=== PATIENT | male | born 1975 | race Two or more races ===

== ENCOUNTER 2024-04-22 12:09 | Inpatient (IN) | payer OTHER ==
[2024-04-22 12:32] VITALS: BMI 27.6
[2024-04-22] MEDS ORDERED: POLYETHYLENE GLYCOL (HEALTHYLAX) 3350 17 GM PACKET PO PRN (14:04)
[2024-04-22] MEDS ORDERED: MAGNESIUM HYDROX 2400MG/30ML ORAL SUSPENSION 30 ML CUP PO PRN (14:04)
[2024-04-22] MEDS ORDERED: guaiFENesin 600 MG TABLET.ER (FP) PO PRN (14:04)
[2024-04-22] MEDS ORDERED: BENZONATATE 200 MG CAPSULE PO PRN (14:04)
[2024-04-22] MEDS ORDERED: ACETAMINOPHEN 325 MG TABLET (FP) PO PRN (14:04)
[2024-04-22] MEDS ORDERED: NALOXONE (NARCAN) HCL 4 MG/0.1 ML SPRAY NS PRN (14:04)
[2024-04-22] MEDS ORDERED: MAG HYDROX/AL HYDROX/SIMETH 30 ML UNIT-DOSE CUP PO PRN (14:04)
[2024-04-22] MEDS ORDERED: IBUPROFEN 400 MG TABLET (FP) PO PRN (14:04)
[2024-04-22] MEDS ORDERED: PATIENT'S OWN MEDICATION (NON-FORMULARY) (Buprenorphine/Naloxone 1 EACH Film) SL SCH (15:00)
[2024-04-22] MEDS: BUPRENORPHINE/NALOXONE 8 MG/2 MG FILM PACKET SL SCH (15:24)
[2024-04-22] MEDS: IBUPROFEN 600 MG TABLET (FP) PO PRN (15:24)
[2024-04-22] MEDS: NICOTINE 21 MG/24 HOURS TOPICAL PATCH TD SCH (15:24)
[2024-04-22] MEDS: NICOTINE POLACRILEX 4 MG LOZENGE BC PRN (15:25)
[2024-04-22] MEDS: TUBERCULIN PPD 5 TU/0.1ML SYRINGE (IN PATIENT USE ONLY) ID ONE (17:59)
[2024-04-22 18:46] LABS: PH,URINE 6.5 (5.0-8.0); URINE APPEARANCE CLEAR; URINE BILIRUBIN NEGATIVE (NEGATIVE); URINE COLOR YELLOW; URINE GLUCOSE (UA) NEGATIVE (NEGATIVE); URINE KETONE NEGATIVE (NEGATIVE); URINE LEUK ESTERASE NEGATIVE (NEGATIVE); URINE NITRITE NEGATIVE (NEGATIVE); URINE PROTEIN NEGATIVE (NEGATIVE)
[2024-04-22] MEDS: hydrOXYzine PAMOATE 25 MG CAPSULE (FP) PO PRN (21:53)
[2024-04-22] MEDS: THIAMINE 100 MG TABLET PO SCH (21:53)
[2024-04-22] MEDS: MELATONIN 5 MG TABLETS PO SCH (21:53)
[2024-04-23] MEDS: PRENATAL VITAMINS W/ FOLIC ACID TABLET (FP) PO SCH (09:32)
[2024-04-23 09:57] LABS: HEMATOCRIT 39.9 % (35.4-49); HEMOGLOBIN 13.4 GM/dL (11.7-16.9); MCH 32.6 pg (25.7-33.7); MCHC 33.6 g/dl (32.0-35.9); MEAN CELL VOLUME 97.2 fl (80-96); MEAN PLT VOLUME 9.4 fl (7.5-11.1); PLATELET COUNT 284 10^3/uL (134-434); RBC 4.11 M/mm3 (4.00-5.60); RDW 13.3 % (11.9-15.9); WHITE BLOOD COUNT 10.7 K/mm3 (4.0-10.0)
[2024-04-23] MEDS: ESCITALOPRAM OXALATE 20 MG TABLET PO SCH (10:02)
[2024-04-23 10:18] LABS: POTASSIUM 4.6 mmol/L (3.5-5.1)
[2024-04-23 10:22] LABS: CALCIUM 8.8 mg/dL (8.5-10.1)
[2024-04-23 10:23] LABS: ALBUMIN 3.2 g/dl (3.4-5.0); BLOOD UREA NITROGEN 10.5 mg/dL (7-18)
[2024-04-23 10:26] LABS: CREATININE 0.8 mg/dL (0.55-1.3)
[2024-04-23 10:27] LABS: BILIRUBIN,TOTAL 0.3 mg/dL (0.2-1)
[2024-04-23 10:28] LABS: TOT PROT 5.8 g/dl (6.4-8.2)
[2024-04-23] MEDS: GABAPENTIN 400 MG CAPSULE PO SCH (13:29)
[2024-04-23] MEDS: METHOCARBAMOL 500 MG TABLET PO SCH ×2 (17:29→22:46)
[2024-04-23] MEDS: BENZOCAINE/MENTHOL (CHLORASEPTIC ) LOZENGE MM PRN (17:30)
[2024-04-23] MEDS: QUEtiapine FUMARATE 100 MG TABLET (FP) PO SCH (22:46)
[2024-04-24 04:00] LABS: SYPHILIS W/ RPR CONF NON-REACTIVE (NONREACTIVE)
[2024-04-25] MEDS ORDERED: ESCITALOPRAM OXALATE 10 MG TABLET ONE (09:09)
[2024-04-25] MEDS: NICOTINE POLACRILEX 4 MG GUM BUC PRN (17:38)
[2024-04-26] MEDS: NICOTINE 21 MG/24 HOURS TOPICAL PATCH TD SCH (06:56)
[2024-04-26] MEDS ORDERED: ESCITALOPRAM OXALATE 10 MG TABLET ONE (09:40)
[2024-04-27] MEDS ORDERED: ESCITALOPRAM OXALATE 10 MG TABLET ONE (10:14)
[2024-04-28] MEDS: BACLOFEN 10 MG TABLET (FP) PO SCH (13:04)
[2024-04-28] MEDS: GABAPENTIN 300 MG CAPSULE PO SCH (14:51)
[2024-04-28] MEDS: BUPRENORPHINE/NALOXONE 8 MG/2 MG FILM PACKET SL SCH (21:42)
[2024-04-29] MEDS: SALICYLIC ACID (WART REMOVER) 9 ML LIQUID TP SCH (09:48)
[2024-05-01] MEDS: LOPERAMIDE HCL 2 MG CAPSULE PO PRN (11:15)
[2024-05-06] MEDS: QUEtiapine FUMARATE 50 MG TABLET PO SCH (21:20)
[2024-05-13] MEDS ORDERED: QUEtiapine FUMARATE 25 MG TABLET ONE (19:40)
[2024-05-18] MEDS ORDERED: NALOXONE (NYS OPIOID OVERDOSE PROGRAM) 4 MG/0.1 ML SPRAY NS PRN (08:45)
[2024-05-19 06:43] VITALS: RESP 16; TEMP 97.7
[2024-05-19] MEDS: NALOXONE (NYS OPIOID OVERDOSE PROGRAM) 4 MG/0.1 ML SPRAY NS PRN (08:47)
[2024-05-19 09:27] VITALS: BP 118/81; PULSE 84
== END 2024-05-19 09:32 | disposition home or self-care (01) | DRG 772 ==
LOC: YASAS 12:09 → Y3NR 13:30 → Y3E 04-24 10:08
PROVIDERS: ADMIT Surgery; ATTEND Psychiatry & Neurology Pain Medicine
PROC: HZ42ZZZ Group Counseling for Substance Abuse Treatment, Cognitive-Behavioral (ICD-10-PCS; principal; 2024-04-22)
DX: F10.20 Alcohol dependence, uncomplicated (principal); F11.20 Opioid dependence, uncomplicated; F14.20 Cocaine dependence, uncomplicated; F17.210 Nicotine dependence, cigarettes, uncomplicated; F33.1 Major depressive disorder, recurrent, moderate; F19.282 Other psychoactive substance dependence with psychoactive substance-induced sleep disorder; F19.24 Other psychoactive substance dependence with psychoactive substance-induced mood disorder; F41.9 Anxiety disorder, unspecified; G62.9 Polyneuropathy, unspecified
CPT/HCPCS: 36415; 80053; 80305; 80307; 81003; 85027; 86780; 86803; 87811; 93005; 93010; J0475

== ENCOUNTER 2024-06-07 21:00 | Inpatient (IN) | payer OTHER ==
[2024-06-07 14:57] VITALS: BMI 27.6
[2024-06-07] MEDS: cloNIDine HCL 0.1 MG TABLET PO ONE (16:21)
[2024-06-07] MEDS: BUPRENORPHINE HCL 150 MCG, BUPRENORPHINE HCL 75 MCG BC ONE (16:21)
[2024-06-07] MEDS: METHOCARBAMOL 500 MG TABLET PO PRN (16:25)
[~2024-06-07 21:00] MED LIST: ACETAMINOPHEN 325 MG TABLET (FP) PO PRN; BENZOCAINE/MENTHOL (CHLORASEPTIC ) LOZENGE MM PRN; BENZONATATE 200 MG CAPSULE PO PRN; BUPRENORPHINE HCL 150 MCG FILM BC ONE; BUPRENORPHINE HCL 150 MCG, BUPRENORPHINE HCL 75 MCG BC PRN; BUPRENORPHINE HCL 75 MCG FILM BC ONE; DICYCLOMINE HCL 10 MG CAPSULE PO PRN; IBUPROFEN 400 MG TABLET (FP) PO PRN; LOPERAMIDE HCL 2 MG CAPSULE ONE; LOPERAMIDE HCL 2 MG CAPSULE PO PRN; MAGNESIUM HYDROX 2400MG/30ML ORAL SUSPENSION 30 ML CUP PO PRN; METHOCARBAMOL 500 MG TABLET ONE; NALOXONE (NARCAN) HCL 4 MG/0.1 ML SPRAY NS PRN; ONDANSETRON *ODT* 4 MG TABLET SL PRN; POLYETHYLENE GLYCOL (HEALTHYLAX) 3350 17 GM PACKET PO PRN; cloNIDine HCL 0.1 MG TABLET ONE; diazePAM 5 MG TABLET PO PRN; guaiFENesin 600 MG TABLET.ER (FP) PO PRN; hydrOXYzine PAMOATE 25 MG CAPSULE (FP) PO PRN
[2024-06-07] MEDS: diazePAM 5 MG TABLET PO SCH (21:50)
[2024-06-07] MEDS ORDERED: MELATONIN 5 MG TABLETS ONE (22:25)
[2024-06-07] MEDS: MELATONIN 5 MG TABLETS PO SCH (22:37)
[2024-06-07] MEDS: THIAMINE 100 MG TABLET PO SCH (22:37)
[2024-06-07] MEDS ORDERED: diazePAM 5 MG TABLET ONE (23:28)
[2024-06-08] MEDS ORDERED: BUPRENORPHINE HCL 150 MCG, BUPRENORPHINE HCL 75 MCG BC PRN
[2024-06-08] MEDS ORDERED: diazePAM 5 MG TABLET ONE ×2 (05:18→10:26)
[2024-06-08] MEDS ORDERED: BUPRENORPHINE HCL 150 MCG FILM BC ONE (05:19)
[2024-06-08] MEDS ORDERED: NICOTINE 21 MG/24 HOURS TOPICAL PATCH ONE (05:19)
[2024-06-08] MEDS ORDERED: BUPRENORPHINE HCL 75 MCG FILM BC ONE (05:20)
[2024-06-08] MEDS: BUPRENORPHINE HCL 150 MCG, BUPRENORPHINE HCL 75 MCG BC SCH (05:27)
[2024-06-08] MEDS: NICOTINE 21 MG/24 HOURS TOPICAL PATCH TD SCH (05:28)
[2024-06-08] MEDS ORDERED: PRENATAL VITAMINS W/ FOLIC ACID TABLET (FP) PO ONE (10:27)
[2024-06-08] MEDS: PRENATAL VITAMINS W/ FOLIC ACID TABLET (FP) PO SCH (10:28)
[2024-06-08] MEDS ORDERED: IBUPROFEN 600 MG TABLET (FP) PO ONE (10:57)
[2024-06-08] MEDS: IBUPROFEN 600 MG TABLET (FP) PO PRN (10:57)
[2024-06-08 11:05] LABS: HEMATOCRIT 42.8 % (35.4-49); HEMOGLOBIN 14.1 GM/dL (11.7-16.9); MCH 31.9 pg (25.7-33.7); MEAN CELL VOLUME 96.7 fl (80-96); MEAN PLT VOLUME 9.1 fl (7.5-11.1); PLATELET COUNT 284 10^3/uL (134-434); RBC 4.43 M/mm3 (4.00-5.60); RDW 13.5 % (11.9-15.9); WHITE BLOOD COUNT 5.7 K/mm3 (4.0-10.0)
[2024-06-08 11:09] LABS: CHLORIDE 106 mmol/L (98-107); POTASSIUM 3.6 mmol/L (3.5-5.1); SODIUM 139 mmol/L (136-145)
[2024-06-08 11:22] LABS: CALCIUM 9.2 mg/dL (8.5-10.1)
[2024-06-08 11:23] LABS: ALBUMIN 3.7 g/dl (3.4-5.0); ANION GAP 7 mmol/L (4-13); BLOOD UREA NITROGEN 6.5 mg/dL (7-18); CO2 27 mmol/L (21-32); GLUCOSE,RANDOM 124 mg/dL (74-106)
[2024-06-08 11:26] LABS: CREATININE 0.7 mg/dL (0.55-1.3); SGOT/AST 25 U/L (15-37); SGPT/ALT 29 U/L (13-61)
[2024-06-08 11:27] LABS: BILIRUBIN,TOTAL 0.6 mg/dL (0.2-1)
[2024-06-08 11:28] LABS: TOT PROT 6.7 g/dl (6.4-8.2)
[2024-06-08 11:29] LABS: ALK PHOS 72 U/L (45-117)
[2024-06-08] MEDS: NICOTINE POLACRILEX 2 MG LOZENGE BC SCH (11:37)
[2024-06-08] MEDS: BISMUTH SUBSALICYLATE 262 MG/15 ML BTL PO PRN (13:58)
[2024-06-08] MEDS: cloNIDine HCL 0.1 MG TABLET PO PRN (17:18)
[2024-06-08] MEDS: NICOTINE POLACRILEX 2 MG LOZENGE BC PRN (17:37)
[2024-06-08] MEDS: QUEtiapine FUMARATE 100 MG TABLET (FP) PO SCH (22:39)
[2024-06-09] MEDS: diazePAM 5 MG TABLET PO SCH (06:12)
[2024-06-09] MEDS: BUPRENORPHINE HCL 450 MCG FILM BC SCH (06:13)
[2024-06-09] MEDS: ESCITALOPRAM OXALATE 20 MG TABLET PO SCH (10:01)
[2024-06-09] MEDS ORDERED: NICOTINE POLACRILEX 4 MG GUM BUC PRN (11:20)
[2024-06-09] MEDS: METHOCARBAMOL 500 MG TABLET PO PRN (11:42)
[2024-06-09] MEDS: NICOTINE POLACRILEX 2 MG LOZENGE BC PRN (12:21)
[2024-06-10] MEDS: BUPRENORPHINE/NALOXONE 4 MG/1 MG FILM PACKET SL SCH (05:55)
[2024-06-10] MEDS: diazePAM 5 MG TABLET PO SCH (05:55)
[2024-06-10] MEDS: GABAPENTIN 300 MG CAPSULE PO SCH (14:38)
[2024-06-11] MEDS: diazePAM 5 MG TABLET PO ONE (05:11)
[2024-06-11] MEDS: BUPRENORPHINE/NALOXONE 8 MG/2 MG FILM PACKET SL ONE (05:13)
[2024-06-11] MEDS: NICOTINE POLACRILEX 2 MG LOZENGE BC PRN (08:48)
[2024-06-11] MEDS: NALOXONE (NYS OPIOID OVERDOSE PROGRAM) 4 MG/0.1 ML SPRAY NS SCH (11:13)
[2024-06-12 09:29] VITALS: RESP 18
[2024-06-12] MEDS: NALOXONE (NYS OPIOID OVERDOSE PROGRAM) 4 MG/0.1 ML SPRAY NS SCH (11:30)
[2024-06-12] MEDS: MAG HYDROX/AL HYDROX/SIMETH 30 ML UNIT-DOSE CUP PO PRN (12:43)
[2024-06-12 13:01] VITALS: BP 123/88; PULSE 93; TEMP 98
[2024-06-12] MEDS: BUPRENORPHINE/NALOXONE 8 MG/2 MG FILM PACKET SL SCH (13:01)
== END 2024-06-12 14:45 | disposition other institution (70) | DRG 773 ==
LOC: YASAS 21:00 → UNDOADMIN 23:21 → Y3N 23:21
PROVIDERS: ADMIT Allergy & Immunology; ATTEND Surgery
PROC: HZ2ZZZZ Detoxification Services for Substance Abuse Treatment (ICD-10-PCS; principal; 2024-06-08)
DX: F10.230 Alcohol dependence with withdrawal, uncomplicated (principal); F11.23 Opioid dependence with withdrawal; F14.20 Cocaine dependence, uncomplicated; F17.210 Nicotine dependence, cigarettes, uncomplicated; F19.24 Other psychoactive substance dependence with psychoactive substance-induced mood disorder; F33.1 Major depressive disorder, recurrent, moderate; G47.00 Insomnia, unspecified; Z59.00 Homelessness unspecified; Z88.0 Allergy status to penicillin
CPT/HCPCS: 36415; 70450-TC; 70486-TC; 72125-TC; 73130-TC-RT-FY; 73610-TC-LT-FY; 73630-TC-LT; 80053; 80307; 85027; 86780; 93005; 93010

== ENCOUNTER 2024-06-12 14:54 | Inpatient (IN) | payer OTHER ==
[2024-06-12] MEDS ORDERED: hydrOXYzine PAMOATE 25 MG CAPSULE (FP) PO PRN (15:23)
[2024-06-12] MEDS ORDERED: guaiFENesin 600 MG TABLET.ER (FP) PO PRN (15:23)
[2024-06-12] MEDS ORDERED: NALOXONE (NARCAN) HCL 4 MG/0.1 ML SPRAY NS PRN (15:23)
[2024-06-12] MEDS ORDERED: BENZONATATE 200 MG CAPSULE PO PRN (15:23)
[2024-06-12] MEDS ORDERED: MAG HYDROX/AL HYDROX/SIMETH 30 ML UNIT-DOSE CUP PO PRN (15:23)
[2024-06-12] MEDS ORDERED: POLYETHYLENE GLYCOL (HEALTHYLAX) 3350 17 GM PACKET PO PRN (15:23)
[2024-06-12] MEDS ORDERED: NALOXONE HCL 0.4 MG/ML VIAL IVPUSH PRN (15:23)
[2024-06-12] MEDS ORDERED: MAGNESIUM HYDROX 2400MG/30ML ORAL SUSPENSION 30 ML CUP PO PRN (15:23)
[2024-06-12] MEDS: METHOCARBAMOL 500 MG TABLET PO PRN (16:31)
[2024-06-12] MEDS: LOPERAMIDE HCL 2 MG CAPSULE PO PRN (16:31)
[2024-06-12] MEDS: NICOTINE POLACRILEX 4 MG LOZENGE BC PRN (17:22)
[2024-06-12] MEDS: MELATONIN 5 MG TABLETS PO SCH (21:05)
[2024-06-12] MEDS: GABAPENTIN 300 MG CAPSULE PO SCH (21:06)
[2024-06-12] MEDS: QUEtiapine FUMARATE 100 MG TABLET (FP) PO SCH (21:06)
[2024-06-12] MEDS: THIAMINE 100 MG TABLET PO SCH (21:06)
[2024-06-12] MEDS ORDERED: MELATONIN 5 MG TABLETS PO SCH (22:00)
[2024-06-13] MEDS: PRENATAL VITAMINS W/ FOLIC ACID TABLET (FP) PO SCH (09:48)
[2024-06-13] MEDS: ESCITALOPRAM OXALATE 20 MG TABLET PO SCH (09:48)
[2024-06-13] MEDS: NICOTINE 21 MG/24 HOURS TOPICAL PATCH TD SCH (09:48)
[2024-06-13] MEDS: BUPRENORPHINE/NALOXONE 8 MG/2 MG FILM PACKET SL SCH (09:50)
[2024-06-13 12:03] LABS: HIV INTERPRETATION NEGATIVE (NEGATIVE)
[2024-06-13] MEDS: GABAPENTIN 400 MG CAPSULE PO SCH (14:25)
[2024-06-13] MEDS: BISMUTH SUBSALICYLATE 524 MG/30 ML PO PRN (14:29)
[2024-06-13] MEDS: BACLOFEN 10 MG TABLET (FP) PO SCH (21:28)
[2024-06-14] MEDS: IBUPROFEN 600 MG TABLET (FP) PO PRN (11:00)
[2024-06-14] MEDS: METHOCARBAMOL 500 MG TABLET PO PRN (13:50)
[2024-06-18] MEDS: BENZOCAINE/MENTHOL (CHLORASEPTIC ) LOZENGE MM PRN (09:33)
[2024-06-19] MEDS: NICOTINE POLACRILEX 4 MG GUM BUC PRN (12:35)
[2024-06-25] MEDS: IBUPROFEN 400 MG TABLET (FP) PO PRN (02:45)
[2024-06-26] MEDS: TOLNAFTATE 1% CREAM 15 GM TUBE TP SCH (21:34)
[2024-06-28] MEDS: HYDROCORTISONE 2.5% TOPICAL CREAM 30 GM TUBE RC PRN (21:32)
[2024-07-01] MEDS: NICOTINE 21 MG/24 HOURS TOPICAL PATCH TD SCH (06:29)
[2024-07-02] MEDS: ACETAMINOPHEN 325 MG TABLET (FP) PO PRN (21:15)
[2024-07-04] MEDS: MAGNESIUM OXIDE 400 MG TABLET (FP) PO SCH (15:28)
[2024-07-04] MEDS: METHYL SALICYLATE/MENTHOL 30 GM TUBE TP PRN (15:36)
[2024-07-05] MEDS: IBUPROFEN 600 MG TABLET (FP) PO PRN (12:00)
[2024-07-05] MEDS: ACETAMINOPHEN 325 MG TABLET (FP) PO PRN (21:26)
[2024-07-06 06:34] VITALS: BP 108/75; PULSE 72; RESP 16; TEMP 97.6
[2024-07-06] MEDS: NALOXONE (NYS OPIOID OVERDOSE PROGRAM) 4 MG/0.1 ML SPRAY NS SCH (11:20)
== END 2024-07-06 11:21 | disposition home or self-care (01) | DRG 772 ==
LOC: YASAS 14:54 → Y3W 14:56 → Y3E 06-22 11:20
PROVIDERS: ADMIT Psychiatry & Neurology Pain Medicine; ATTEND Psychiatry & Neurology Pain Medicine
PROC: HZ42ZZZ Group Counseling for Substance Abuse Treatment, Cognitive-Behavioral (ICD-10-PCS; principal; 2024-06-12)
DX: F11.20 Opioid dependence, uncomplicated (principal); F10.20 Alcohol dependence, uncomplicated; F14.20 Cocaine dependence, uncomplicated; F17.210 Nicotine dependence, cigarettes, uncomplicated; F19.282 Other psychoactive substance dependence with psychoactive substance-induced sleep disorder; F19.24 Other psychoactive substance dependence with psychoactive substance-induced mood disorder; F33.1 Major depressive disorder, recurrent, moderate; G62.9 Polyneuropathy, unspecified; L85.3 Xerosis cutis
CPT/HCPCS: 36415; 86803; 87389; J0475